=== PATIENT | female | born 1995 | race Caucasian/White ===

== ENCOUNTER 2016-12-17 17:28 | Emergency (ER) | payer OTHER ==
[~2016-12-17] VITALS: Wt 64.0 kg
[~2016-12-17 17:28] MED LIST: ASCO500C7 PO; CALC600T11 PO; CYAN500T46 PO; HYDR-906 PO; IBUP-1542 PO; PRENAT PO
[2016-12-17 17:31] VITALS: Wt 64.0 kg
[2016-12-17 18:53] LABS: URINE BLOOD (Dip) POC 2+ (NEGATIVE)
--- NOTE | 2016-12-17 20:02 | RADRPT ---
PROCEDURE: US Pelvis. CLINICAL INDICATION: Pelvic pain, right-sided TECHNIQUE: Multiple sonographic images of the pelvis were obtained utilizing a transabdominal and endovaginal technique. The images were reviewed on a PACS workstation. COMPARISON: Obstetrical ultrasound 02/14/2016 FINDINGS: Uterus: Normal in size, contour and echogenicity with no evidence for myometrial masses. Size is est imated at 6.8 x 4.5 x 3.4 cm. Cervix: No abnormalities of significance are seen. Endometrium: Normal in thickness; 7.3 mm. Linear echogenic focus consistent with an intrauterine de vice is in good position Right ovary / adnexa: Normal in size estimated at 2.6 x 2.4 x 1.7 cm. No evidence for masses, norm al blood flow on Doppler interrogation. Left ovary/adnexa: Normal in size estimated at 1.8 x 1 x 0.9 cm. No evidence for solid masses, norm al blood flow on Doppler interrogation. Punctate echogenic shadowing foci within the ovary are consi stent with benign calcifications. Cul-de-sac: No evidence of free fluid. RPTAT:HJJR IMPRESSION: Intrauterine device in good position, otherwise unremarkable pelvic ultrasound. Physician Meng Date Time Electronically viewed and signed by Physician Meng on 12/17/2016 20:02 /
[2016-12-17] MEDS ORDERED: IBUP-1542 PO (20:25)
[2016-12-17 20:46] VITALS: BP 122/72; PULSE 75; RESP 16
--- NOTE | 2016-12-17 22:18 | ERD ---
ER Documentation Chief Complaint Date/Time DATE: 12/17/16 TIME: 22:09 Chief Complaint VAG BLEEDING, ONSET 2 DAYS HPI 21-year-old female complaining of right-sided pelvic pain since this morning. Pain is intermittent. There is no radiation of the pain. Her LMP was about 4 days ago, she is still currently spotting. Patient has Ursula IUD in place, her periods has been irregular. Patient is also breast-feeding a [id number] daughter. She took ibuprofen for pain about 6 hours ago. Denies fever or chills. Denies nausea vomiting or diarrhea. Denies dysuria. ROS All systems reviewed and are negative except as per history of present illness. Medications Home Meds Active Scripts Ibuprofen* (Motrin*) 600 Mg Tab, 600 MG PO Q6H Y for PAIN AND OR ELEVATED TEMP, #30 TAB Prov:ROGER VIRAMONTES. EMS EDUCATOR 12/17/16 Hydrocodone/Acetaminophen (David 5-325 Tablet) 1 Each Tablet, 1 TAB PO Q6H Y for PAIN, #12 TAB Prov:SILVANA ADAMSON DO 03/24/16 Reported Medications Ibuprofen* (Ibuprofen*) 600 Mg Tablet, 600 MG PO Q6H, TAB 03/24/16 Cyanocobalamin* (Vitamin B12*) Unknown Strength Tab, MCG PO DAILY, TAB 03/24/16 Ascorbic Acid* (Vitamin C*) 500 Mg Capsule.sa, 500 MG PO DAILY, CAP 03/24/16 Calcium Carbonate* (Calcium Carbonate*) 600 MG Ca Tab, 600 MG PO DAILY, TAB 01/26/16 Multivit/Min/Fol Ac/Iron/Pren* ( S*) Unknown Strength Tab, PO DAILY, TAB 09/30/15 Allergies Allergies: Coded Allergies: No Known Allergy (Unverified , 03/24/16) PMhx/Soc Medical and Surgical Hx: pt denies Medical Hx, pt denies Surgical Hx History of Surgery: No Anesthesia Reaction: No Hx Neurological Disorder: No Hx Respiratory Disorders: No Hx Cardiac Disorders: No Hx Psychiatric Problems: No Hx Miscellaneous Medical Probl: No (1 month post full term , breast feeding) Hx Alcohol Use: No Hx Substance Use: No Hx Tobacco Use: No Smoking Status: Never smoker Physical Exam Vitals Vital Signs Date Time Temp Pulse Resp B/P Pulse Ox O2 Delivery O2 Flow Rate FiO2 12/17/16 20:46 75 16 122/72 98 Room Air 12/17/16 17:31 98.7 99 16 157/75 99 Physical Exam General: Well-developed, well-nourished, conscious and coherent, in no distress Skin: Warm and dry without rash, good texture and turgor Head: Normocephalic without evidence of trauma Eyes: Sclera and conjunctivae normal; pupils equal, round, and reactive to light; extraocular movements are intact Neck: Supple without meningismus or adenopathy. Carotids are equal. Trachea midline. No bruits or JVD Chest: Normal AP diameter. Good expansion without retractions. Nontender. Lungs are clear to auscultate bilaterally with good tidal volume Heart: Regular rate and rhythm. No murmur, rub, or gallops heard Abdomen: Soft and nontender without masses, guarding, or rebound. Bowel sounds are active. No hepatosplenomegaly. No McBurney point tenderness. Back: Without spinal or CVA tenderness Pelvis: Nontender to palpation and stable to compression Extremities: Full range of motion. Good strength bilaterally. No clubbing, cyanosis, or edema. Peripheral pulses are intact. Sensation intact Neuro: Alert and oriented 4, GCS 15. Cranial nerves grossly intact. Motor and sensory exams nonfocal. Moves all extremities. Speech clear. Gait normal Results 24 hrs Laboratory Tests Test 12/17/16 18:56 Bedside Urine pH (LAB) 7.0 Bedside Urine Protein (LAB) 1+ Bedside Urine Glucose (UA) Negative Bedside Urine Ketones (LAB) Trace Bedside Urine Blood 2+ Bedside Urine Nitrite (LAB) Negative Bedside Urine Leukocyte Esterase (L Trace PROCEDURE: US Pelvis. CLINICAL INDICATION: Pelvic pain, right-sided TECHNIQUE: Multiple sonographic images of the pelvis were obtained utilizing a transabdominal and endovaginal technique. The images were reviewed on a PACS workstation. COMPARISON: Obstetrical ultrasound 02/14/2016 FINDINGS: Uterus: Normal in size, contour and echogenicity with no evidence for myometrial masses. Size is estimated at 6.8 x 4.5 x 3.4 cm. Cervix: No abnormalities of significance are seen. Endometrium: Normal in thickness; 7.3 mm. Linear echogenic focus consistent with an intrauterine device is in good position Right ovary / adnexa: Normal in size estimated at 2.6 x 2.4 x 1.7 cm. No evidence for masses, normal blood flow on Doppler interrogation. Left ovary/adnexa: Normal in size estimated at 1.8 x 1 x 0.9 cm. No evidence for solid masses, normal blood flow on Doppler interrogation. Punctate echogenic shadowing foci within the ovary are consistent with benign calcifications. Cul-de-sac: No evidence of free fluid. RPTAT:HJJR IMPRESSION: Intrauterine device in good position, otherwise unremarkable pelvic ultrasound. Nico Cruz Physician Date Time Electronically viewed and signed by Nico Cruz Physician on 12/17/2016 20:02 JR/ CC: ROGER VIRAMONTES. EMS EDUCATOR Procedures/MDM Well-appearing 21-year-old female is complaining of pelvic pain 1 day. Her pelvic ultrasound was unremarkable, IUD in good position, no adnexal masses, ovarian cysts or ovarian torsion. Urine dip showed trace leukocyte, 2+ blood, trace ketones, 1+ protein. Patient denies dysuria, I do not feel that she needs antibiotic UTI treatment. It is uncertain the cause of her pelvic pain at this time, likely due to menstrual cramping. Patient appears well, stable for discharge and outpatient management. Medical decision making shared with patient and family. Education provided to patient and family. Patient and family expressed understanding of the plan. Medications on discharge: Ibuprofen. Follow-up: Primary care provider in 2-3 days or return to ED if worse. Departure Diagnosis: Primary Impression: Pelvic pain Condition: Stable Patient Instructions: Pelvic Pain, Unknown Cause Referrals: COMMUNITY CLINICS YOU HAVE RECEIVED A MEDICAL SCREENING EXAM AND THE RESULTS INDICATE THAT YOU DO NOT HAVE A CONDITION THAT REQUIRES URGENT TREATMENT IN THE EMERGENCY DEPARTMENT. FURTHER EVALUATION AND TREATMENT OF YOUR CONDITION CAN WAIT UNTIL YOU ARE SEEN IN YOUR DOCTORS OFFICE WITHIN THE NEXT 1-2 DAYS. IT IS YOUR RESPONSIBILITY TO MAKE AN APPOINTMENT FOR FOLOW-UP CARE. IF YOU HAVE A PRIMARY DOCTOR --you should call your primary doctor and schedule an appointment IF YOU DO NOT HAVE A PRIMARY DOCTOR YOU CAN CALL OUR PHYSICIAN REFERRAL HOTLINE AT IF YOU CAN NOT AFFORD TO SEE A PHYSICIAN YOU CAN CHOSE FROM THE FOLLOWING [facility]ESS [facility] CLINICS [facility] [address] [facility]. [facility] [address] [facility] [address] [facility] [address] [facility]. [facility] [address] [facility]. [facility] [address] Additional Instructions: Call your primary care doctor TOMORROW for an appointment during the next 2-3 days.See the doctor sooner or return here if your condition worsens before your appointment time. ROGER VIRAMONTES NP December 17, 2016 22:18
== END 2016-12-17 20:48 | disposition home or self-care (01) ==
LOC: FTE 17:28
DX: R10.2 Pelvic and perineal pain (principal)
CPT/HCPCS: 76830; 76856; 81003

== ENCOUNTER 2017-06-02 17:57 | Emergency (ER) | payer OTHER ==
[~2017-06-02] VITALS: Wt 65.9 kg
[~2017-06-02 17:57] MED LIST changes: -CALC600T11 PO; +CALC600T24 PO
[2017-06-02] MEDS ORDERED: ONDANSETRON 4 MG INJ IV STA (20:07)
[2017-06-02] MEDS ORDERED: KETOROLAC 30 MG INJ IV STA (20:07)
[2017-06-02] MEDS ORDERED: SOD CHLORIDE 0.9% 1,000 ML IV STA (20:07)
--- NOTE | 2017-06-02 20:16 | ERD ---
ER Documentation Chief Complaint Chief Complaint Right upper quadrant abdominal pain HPI Patient is a 22-year-old female who presents to the emergency department with complaint of right upper quadrant abdominal pain radiating to the back. The patient reports that her symptoms initially began last night, with onset of by sharp, constant pain to the right upper quadrant of the abdomen that radiates to the back. It began shortly after eating a meal with fried mozzarella sticks. She reports associated nausea with multiple episodes of nonbilious, nonbloody emesis. She also notes a few episodes of diarrhea. Denies any black or bloody stools. Denies dysuria, hematuria, flank pain. Denies vaginal bleeding or new vaginal discharge. Denies fevers, sweats, chills, headache, dizziness, weakness. The patient reports a known history of gallstones, and states that she previously had similar symptoms during a prior "gallstone attack." She notes that authorization has been placed for her to follow up with a general surgeon, but she has not yet seen one. ROS All systems reviewed and are negative except as per history of present illness. Medications Home Meds Active Scripts Ondansetron (Zofran Odt) 4 Mg Tab.rapdis, 4 MG PO Q8, #5 Prov:ADELIA KAMINSKI PA-C 06/02/17 Ibuprofen* (Motrin*) 600 Mg Tab, 600 MG PO Q6, #30 TAB Prov:ADELIA KAMINSKI PA-C 06/02/17 Hydrocodone/Acetaminophen ([place] 5-325 Tablet) 1 Each Tablet, 1 EACH PO Q6, #6 TAB Prov:ADELIA KAMINSKI PA-C 06/02/17 Ibuprofen* (Motrin*) 600 Mg Tab, 600 MG PO Q6H Y for PAIN AND OR ELEVATED TEMP, #30 TAB Prov:ROGER VIRAMONTES RELATIONS SPECIALIST 12/17/16 Hydrocodone/Acetaminophen ([place] 5-325 Tablet) 1 Each Tablet, 1 TAB PO Q6H Y for PAIN, #12 TAB Prov:SILVANA ADAMSON DO 03/24/16 Reported Medications Ibuprofen* (Ibuprofen*) 600 Mg Tablet, 600 MG PO Q6H, TAB 03/24/16 Cyanocobalamin* (Vitamin B12*) Unknown Strength Tab, MCG PO DAILY, TAB 03/24/16 Ascorbic Acid* (Vitamin C*) 500 Mg Capsule.sa, 500 MG PO DAILY, CAP 03/24/16 Calcium Carbonate* (Calcium Carbonate*) 600 MG Ca Tab, 600 MG PO DAILY, TAB 01/26/16 Multivit/Min/Fol Ac/Iron/Pren* ( S*) Unknown Strength Tab, PO DAILY, TAB 09/30/15 Allergies Allergies: Coded Allergies: No Known Allergy (Unverified , 06/02/17) PMhx/Soc Medical and Surgical Hx: pt denies Surgical Hx History of Surgery: No Anesthesia Reaction: No Hx Neurological Disorder: No Hx Respiratory Disorders: No Hx Cardiac Disorders: No Hx Psychiatric Problems: No Hx Miscellaneous Medical Probl: Yes (GALLSTONES) Hx Alcohol Use: No Hx Substance Use: No Hx Tobacco Use: No Smoking Status: Never smoker Physical Exam Vitals Vital Signs Date Time Temp Pulse Resp B/P Pulse Ox O2 Delivery O2 Flow Rate FiO2 06/02/17 22:08 98.3 89 18 136/71 100 Room Air 06/02/17 17:59 97.4 84 20 126/73 100 Physical Exam GENERAL: Well-developed, well-nourished, female, in no acute distress HEENT: Head is normocephalic, atraumatic. No scleral pallor or icterus. Pupils equal, round and reactive to light. Extraocular movements intact. Conjunctiva pink. Moist mucous membranes. NECK: Supple. RESPIRATORY: Lungs are clear to auscultation bilaterally. Equal breath sounds. Normal expiratory effort. CARDIOVASCULAR: Regular rate and rhythm. S1 and S2 normal. Distal pulses are palpable, 2+ bilaterally. Capillary refill is less than 2 seconds. GASTROINTESTINAL: Abdomen is soft and non-distended. Tenderness to palpation over the right upper quadrant of the abdomen. No guarding, no rebound tenderness. Normal bowel sounds. No tenderness at McBurney's point. Negative Jara sign. FLANK: No CVA tenderness. BACK: No midline tenderness. EXTREMITIES: No clubbing, cyanosis, or edema. Normal skin perfusion. Moving all extremities. Muscle tone is normal. No focal swelling or erythema. NEUROLOGIC: The patient is alert, awake, and oriented x 3. No focal neurologic deficits. INTEGUMENT: Skin is intact. Warm and dry. No rashes, no petechiae present. PSYCHIATRIC: Cooperative. Appropriate. Result Diagram: 11/8/17 2030 11/8/17 2030 Results 24 hrs Laboratory Tests Test 06/02/17 20:30 White Blood Count 11.710^3/ul Red Blood Count 4.4310^6/ul Hemoglobin 12.6g/dl Hematocrit 39.0% Mean Corpuscular Volume 88.0fl Mean Corpuscular Hemoglobin 28.4pg Mean Corpuscular Hemoglobin Concent 32.3g/dl Red Cell Distribution Width 13.0% Platelet Count 71358^3/UL Mean Platelet Volume 9.7fl Neutrophils % 61.7% Lymphocytes % 29.4% Monocytes % 7.3% Eosinophils % 0.9% Basophils % 0.4% Nucleated Red Blood Cells % 0.0/100WBC Neutrophils # 7.210^3/ul Lymphocytes # 3.410^3/ul Monocytes # 0.910^3/ul Eosinophils # 0.110^3/ul Basophils # 0.110^3/ul Nucleated Red Blood Cells # 0.010^3/ul Prothrombin Time 12.7Sec Prothrombin Time Ratio 1.0 INR International Normalized Ratio 0.95 Activated Partial Thromboplast Time 34.2Sec Urine Color YELLOW Urine Clarity SLIGHTLY CLOUDY Urine pH 7.0 Urine Specific [place] 1.027 Urine Ketones NEGATIVEmg/dL Urine Nitrite NEGATIVEmg/dL Urine Bilirubin NEGATIVEmg/dL Urine Urobilinogen NEGATIVEmg/dL Urine Leukocyte Esterase NEGATIVELeu/ul Urine Microscopic RBC 0/HPF Urine Microscopic WBC 5/HPF Urine Squamous Epithelial Cells FEW/HPF Urine Mucus FEW/HPF Urine Hemoglobin NEGATIVEmg/dL Urine Glucose NEGATIVEmg/dL Urine Total Protein NEGATIVEmg/dl Sodium Level 143mmol/L Potassium Level 3.9mmol/L Chloride Level 104mmol/L Carbon Dioxide Level 26mmol/L Anion Gap 17 Blood Urea Nitrogen 16mg/dl Creatinine 0.70mg/dl Glucose Level 88mg/dl Calcium Level 9.1mg/dl Total Bilirubin 0.1mg/dl Direct Bilirubin 0.00mg/dl Indirect Bilirubin 0.1mg/dl Aspartate Amino Transf (AST/SGOT) 17IU/L Alanine Aminotransferase (ALT/SGPT) 23IU/L Alkaline Phosphatase 89IU/L Total Protein 6.4g/dl Albumin 4.7g/dl Globulin 1.70g/dl Albumin/Globulin Ratio 2.76 Lipase 90U/L Serum HCG, Qualitative NEGATIVE Current Medications Medications (Trade) Dose Ordered Sig/Jere Route PRN Reason Start Time Stop Time Status Last Admin Dose Admin Sodium Chloride (NS) 1,000 ml @ 1,000 mls/hr Q1H STAT IV 06/02/17 20:07 06/02/17 21:06 DC 06/02/17 20:41 Ondansetron HCl (Zofran Inj) 4 mg ONCE STAT IV 06/02/17 20:07 06/02/17 20:10 DC 06/02/17 20:41 Ketorolac Tromethamine (Toradol) 30 mg ONCE STAT IV 06/02/17 20:07 06/02/17 20:10 DC 06/02/17 20:41 Procedures/MDM DIAGNOSTIC TESTS AND INTERPRETATION: PROCEDURE: US Abdomen Right Upper Quadrant. CLINICAL INDICATION: Abdominal pain TECHNIQUE: Multiple real-time longitudinal and transverse images were acquired of the patient's right upper quadrant abdomen utilizing a curved array transducer. COMPARISON: 03/24/2016 FINDINGS: Liver: The liver is borderline enlarged with no focal lesion identified. Antegrade flow is seen in the main portal vein. Gallbladder: At least two 6 mm gallstone is seen within the gallbladder fundus. The gallbladder wall is not thickened at 2.2 mm in thickness. Bile ducts: The biliary tree is not dilated. The common bile duct measures 2.3 mm in cross diameter. Pancreas: Appears unremarkable with no mass or inflammation evident. Right adrenal : No mass is identified. Right kidney: Normal in echotexture andl in size. The right kidney measures 10.9 cm in length. No mass, pathological calcification, or hydronephrosis is evident. Peritoneum: There is no free intraperitoneal fluid IMPRESSION: 1. When compared to the previous sonogram of 03/24/2016, there is persistent cholelithiasis, but the gallbladder wall is no longer thickened. No bile duct dilatation is evident. The technologist reports a negative sonographic Jara's sign. 2. The visualized pancreas appears unremarkable. 3. The liver is upper normal in size with no focal lesion identified. 4. Normal appearing right kidney without hydronephrosis. 5. No free fluid is identified. Physician Josias Date Time Electronically viewed and signed by Physician Josias on 06/02/2017 20:44 EMERGENCY DEPARTMENT COURSE: The patient was stable throughout the ED course. IV access established by nursing staff. Laboratory testing and ultrasound imaging performed. Normal saline, Toradol and Zofran administered to the patient. After rest, the patient reports no new complaints, and resolution of pain and nausea. MEDICAL DECISION MAKING: This is a 22-year-old female presenting to the Emergency Department with complaint of right upper quadrant abdominal pain. Her pain began shortly after eating a meal of fried mozzarella sticks. Physical examination, the patient's abdomen was soft, but with tenderness of the right upper quadrant of the abdomen. She had no guarding, no rebound tenderness, no gross peritonitis, negative Jara sign. Differential diagnosis includes, but is not limited to, gastroenteritis, gastritis, cholecystitis, cholangitis, choledocholithiasis, pancreatitis, perforated viscus, mesenteric ischemia, GERD , PUD, urinary tract infection, acute coronary syndrome, peptic ulcer disease, pyelonephritis, pneumonia, hepatitis, infectious diarrhea, IBD, aortic dissection, torsion, bowel obstruction, appendicitis, diverticulitis. No significant acute abnormalities were noted on laboratory testing performed. Ultrasound imaging revealed cholelithiasis, but with no gallbladder wall thickening. Otherwise, no evidence of acute cholecystitis, cholangitis, choledocholithiasis or gallstone pancreatitis. After rest and administration of medications, the patient reports no new complaints and resolved pain and symptoms. Upon review and interpretation of the patient's presentation and overall ER course, I believe the patient's symptoms are most consistent with right upper quadrant abdominal pain, likely secondary to cholelithiasis without cholecystitis, biliary colic. Doubt acute coronary syndrome - symptoms and examination inconsistent. Doubt pancreatitis - clinical presentation inconsistent, lipase normal. Doubt perforated ulcer, patient has a non-surgical abdomen. Doubt small bowel obstruction, patient is passing flatus, abdomen is non-distended. Doubt appendicitis, patient has no McBurney's point tenderness, no guarding, non-surgical abdomen, no tenderness over the RLQ. Doubt diverticulitis, exam inconsistent. Doubt ischemic bowel, no pain out of proportion to examination. Doubt torsion, symptoms and examination inconsistent. At this time, the patient is in stable condition and therefore can be discharged home with prescriptions for Ibuprofen, [place] and Zofran and strict return precautions for signs of deteriorating or worsening condition. She is advised to follow up with her primary care provider in 1-2 days for re- evaluation and further management, or return to the ER sooner if symptoms worsen. Additionally, discussed follow-up with general surgeon to discuss elective cholecystectomy. I shared my medical decision making, plan, as well as the results with the patient at length and in great detail, and she verbally understands and agrees with the plan for further observation and care as an outpatient. At the time of discharge, all questions were answered. Departure Diagnosis: Primary Impression: Cholelithiasis without cholecystitis Additional Impressions: Biliary colic Right upper quadrant abdominal pain Condition: Stable Patient Instructions: Biliary Colic With Gallstone (Confirmed), Gallstones, Treating Gallstones, What Are Gallstones? Additional Instructions: Follow-up with your primary medical provider in 1-2 days for reevaluation and further management. Please obtain a referral to a general surgeon to discuss elective cholecystectomy. Return to the emergency department for any new or worsening symptoms. ADELIA KAMINSKI PA-C Jun 02, 2017 20:15
--- NOTE | 2017-06-02 20:44 | RADRPT ---
PROCEDURE: US Abdomen Right Upper Quadrant. CLINICAL INDICATION: Abdominal pain TECHNIQUE: Multiple real-time longitudinal and transverse images were acquired of the patient's [facility] upper quadrant abdomen utilizing a curved array transducer. COMPARISON: 03/24/2016 FINDINGS: Liver: The liver is borderline enlarged with no focal lesion identified. Antegrade flow is seen in t he main portal vein. Gallbladder: At least two 6 mm gallstone is seen within the gallbladder fundus. The gallbladder wall is not thickened at 2.2 mm in thickness. Bile ducts: The biliary tree is not dilated. The common bile duct measures 2.3 mm in cross diameter. Pancreas: Appears unremarkable with no mass or inflammation evident. Right adrenal : No mass is identified. Right kidney: Normal in echotexture andl in size. The right kidney measures 10.9 cm in length. No ma ss, pathological calcification, or hydronephrosis is evident. Peritoneum: There is no free intraperitoneal fluid IMPRESSION: 1. When compared to the previous sonogram of 03/24/2016, there is persistent cholelithiasis, but th e gallbladder wall is no longer thickened. No bile duct dilatation is evident. The technologist repo rts a negative sonographic Jara's sign. 2. The visualized pancreas appears unremarkable. 3. The liver is upper normal in size with no focal lesion identified. 4. Normal appearing right kidney without hydronephrosis. 5. No free fluid is identified. Physician Josias Date Time Electronically viewed and signed by Physician Josias on 06/02/2017 20:44 RH/
[2017-06-02] MEDS ORDERED: HYDR-906 PO (21:54)
[2017-06-02] MEDS ORDERED: IBUP-1542 PO (21:54)
[2017-06-02] MEDS ORDERED: ONDA4TAB11 PO (21:55)
[2017-06-02 22:08] VITALS: BP 136/71; PULSE 89; RESP 18; TEMP 98.3
== END 2017-06-02 22:10 | disposition home or self-care (01) ==
LOC: FTE 17:57
DX: K80.70 Calculus of gallbladder and bile duct without cholecystitis without obstruction (principal)
CPT/HCPCS: 36415; 76705; 80053; 81001; 83690; 84703; 85025; 85610; 85730; 96374; 96375; J1885; J2405; J7030; Z7502; 81003

== ENCOUNTER 2018-08-09 17:21 | Emergency (ER) | payer OTHER ==
[~2018-08-09] VITALS: Ht 167.6 cm; Wt 70.9 kg
[~2018-08-09 17:21] MED LIST changes: +HYDR-4011 PO; -HYDR-906 PO; +ONDA4TAB11 PO
[2018-08-09 17:28] VITALS: BP 122/74; PULSE 126; RESP 18; Ht 167.6 cm; Wt 70.9 kg
[2018-08-09] MEDS ORDERED: LIDOCAINE 2%/EPI MPF (SDV) 20 ML VIAL INJ STA (17:47)
[2018-08-09] MEDS ORDERED: IBUPROFEN 800 MG TAB PO ONE (18:00)
[2018-08-09] MEDS ORDERED: DIPHTH/TET/ACEL PERTUSS (ADULT) 0.5 ML VIAL IM* ONE (18:00)
--- NOTE | 2018-08-09 19:00 | ERD ---
ER Documentation Chief Complaint Chief Complaint RIGHT HAND/FOREARM LAC FROM WINDOW THAT BROKEN WHEN CLOSING HPI 23-year-old female is here with hand laceration to the right hand which is her dominant hand. She was opening a window in the glass shattered and cut her. She sustained 2 lacerations to the dorsal surface of her right hand. She is unsure of her last tetanus vaccination. Unsure if there are any retained pieces of glass. No numbness or tingling or loss of range of motion. ROS All systems reviewed and are negative except as per history of present illness. Medications Home Meds Active Scripts Ondansetron (Zofran Odt) 4 Mg Tab.rapdis, 4 MG PO Q8, #5 Prov:ADELIA KAMINSKI PA-C 06/02/17 Ibuprofen* (Motrin*) 600 Mg Tab, 600 MG PO Q6, #30 TAB Prov:ADELIA KAMINSKI PA-C 06/02/17 Hydrocodone/Acetaminophen ([place] 5-325 Tablet) 1 Each Tablet, 1 EACH PO Q6, #6 TAB Prov:ADELIA KAMINSKI PA-C 06/02/17 Ibuprofen* (Motrin*) 600 Mg Tab, 600 MG PO Q6H PRN for PAIN AND OR ELEVATED TEMP, #30 TAB Prov:ROGER VIRAMONTES NP 12/17/16 Hydrocodone/Acetaminophen ([place] 5-325 Tablet) 1 Each Tablet, 1 TAB PO Q6H PRN for PAIN, #12 TAB Prov:SILVANA ADAMSON DO 03/24/16 Reported Medications Ibuprofen* (Ibuprofen*) 600 Mg Tablet, 600 MG PO Q6H, TAB 03/24/16 Cyanocobalamin* (Vitamin B12*) Unknown Strength Tab, MCG PO DAILY, TAB 03/24/16 Ascorbic Acid* (Vitamin C*) 500 Mg Capsule.sa, 500 MG PO DAILY, CAP 03/24/16 Calcium Carbonate* (Calcium Carbonate*) 600 MG Ca Tab, 600 MG PO DAILY, TAB 01/26/16 Multivit/Min/Fol Ac/Iron/Pren* ( S*) Unknown Strength Tab, PO DAILY, TAB 09/30/15 Allergies Allergies: Coded Allergies: No Known Allergy (Unverified , 06/02/17) PMhx/Soc History of Surgery: No Anesthesia Reaction: No Hx Neurological Disorder: No Hx Respiratory Disorders: No Hx Cardiac Disorders: No Hx Psychiatric Problems: No Hx Miscellaneous Medical Probl: Yes (GALLSTONES) Hx Alcohol Use: No Hx Substance Use: No Hx Tobacco Use: No FmHx Family History: No diabetes Physical Exam Vitals Vital Signs Date Temp Pulse Resp B/P (MAP) Pulse Ox O2 O2 Flow FiO2 Time Delivery Rate 08/09/18 100.9 126 18 122/74 98 17:28 (90) Physical Exam Const: No acute distress Head: Atraumatic Eyes: Normal Conjunctiva ENT: Normal External Ears, Nose and Mouth. Neck: Full range of motion. No meningismus. Resp: Clear to auscultation bilaterally Cardio: Regular rate and rhythm, no murmurs Hand -right Skin: 2 lacerations approximately 5 cm each 1 in the mid dorsal surface of the hand and one along the ulnar aspect of the dorsal surface, no evidence of retained foreign body Compartments: Soft Sensation: Intact shoulder/pinky/middle finger/thumb web space Bones: Nontender Snuffbox: Nontender Joints: No effusion Wrist: Flex/Ext: Normal Uln/Radial deviation: Normal Pron/Supination Normal Finger: Flex/Ext: Normal Add/abd: Normal Thumb: Flex/Ext: Normal Opposition: Normal Thumbs up: Normal Results 24 hrs Current Medications Medications Dose Sig/Jere Start Time Status Last (Trade) Ordered Route PRN Stop Time Admin Dose Reason Admin Diphtheria/ 0.5 ml ONCE ONCE 08/09/18 DC 08/09/18 Tetanus/Acell IM* 18:00 17:52 Pertussis 08/09/18 18:01 (Adacel) Ibuprofen 800 mg ONCE ONCE 08/09/18 DC 08/09/18 (Motrin) PO 18:00 17:52 08/09/18 18:01 Lidocaine/ 20 ml ONCE STAT 08/09/18 DC Epinephrine INJ 17:47 (Xylocaine 08/09/18 17:48 2%/ Epi Mpf(Sdv)) Procedures/MDM X-ray is negative for foreign body. She is neurovascularly intact. The skin edges of the laceration were infiltrated with 1% lidocaine . The laceration was irrigated with copious amounts of normal saline. The wound was prepped with Betadine. On examinationexamination under direct light, there was no foreign body seen. The laceration was repaired with simple interrupted sutures. 14 sutures total After repair, there was no continuing bleeding on repair and there did not appear to be any complication related to repair. The patient tolerated the procedure well and the wound was appropriately dressed and bandaged. I recommended the patient return in 2 days for a wound check and 7-10 days for removal of sutures. Patient counseled regarding my diagnostic impression and care plan. Prior to discharge all questions answered. Pt agrees with treatment plan and understands strict return precautions. Pt is instructed to follow up with primary care provider within 24-48 hours. Precautionary instructions provided including instructions to return to the ER if not improving or for any worsening or changing symptoms or concerns. Departure Diagnosis: Primary Impression: Laceration Condition: Stable Patient Instructions: Laceration, Hand Additional Instructions: Follow up in 2 days in your clinic for wound check. Follow up with your physician to remove the stitches:For Face wounds 5-7 days.For Elsewhere on the body 7-10 days. JACKIE WHALEN PA-C Aug 09, 2018 19:00
== END 2018-08-09 19:14 | disposition home or self-care (01) ==
LOC: FTE 17:21
DX: S61.411A Laceration without foreign body of right hand, initial encounter (principal); W25.XXXA Contact with sharp glass, initial encounter; Y92.9 Unspecified place or not applicable; Z23 Encounter for immunization
CPT/HCPCS: 12004; 73130; 90471; 90715; Z7502; Z7610

== ENCOUNTER 2018-09-22 05:50 | Day surgery (SDC) | payer OTHER ==
[~2018-09-22] VITALS: Ht 162.6 cm; Wt 72.6 kg
[2018-09-22] VITALS (14 sets, daily range): BP systolic 108–134; BP diastolic 59–79; PULSE 74–112; RESP 12–31; Ht 162.6 cm; Wt 72.6 kg
[2018-09-22] MEDS ORDERED: OMEP20CA16 PO (06:46)
--- NOTE | 2018-09-22 06:54 | PREAC ---
Date/Time of Note Date/Time of Note DATE: 09/22/18 TIME: 06:52 Anesthesia Eval and Record Evaluation Time Pre-Procedure Interview DATE: 09/22/18 TIME: 06:52 Age 23 Sex female NPO: 8 hrs Preoperative diagnosis right long finger extensor tendon tear Planned procedure repair right long ring finger extensor tendon Past Medical History Past Medical History: Includes GI: GERD (well controlled with omeprazole) Surgery & Anesthesia Issues No known issue Meds Anticoagulation: No Beta Lev within 24 hr: No Reason Beta Lev not given: Pt. not on B-Lev Reported Medications Omeprazole* (Omeprazole*) 20 Mg Capsule.dr, 20 MG PO DAILY, #30 CAP 09/22/18 Discontinued Reported Medications Ibuprofen* (Ibuprofen*) 600 Mg Tablet, 600 MG PO Q6H, TAB 03/24/16 Cyanocobalamin* (Vitamin B12*) Unknown Strength Tab, MCG PO DAILY, TAB 03/24/16 Ascorbic Acid* (Vitamin C*) 500 Mg Capsule.sa, 500 MG PO DAILY, CAP 03/24/16 Calcium Carbonate* (Calcium Carbonate*) 600 MG Ca Tab, 600 MG PO DAILY, TAB 01/26/16 Multivit/Min/Fol Ac/Iron/Pren* ( S*) Unknown Strength Tab, PO DAILY, TAB 09/30/15 Discontinued Scripts Ondansetron (Zofran Odt) 4 Mg Tab.rapdis, 4 MG PO Q8, #5 Prov:ADELIA KAMINSKI PA-C 06/02/17 Ibuprofen* (Motrin*) 600 Mg Tab, 600 MG PO Q6, #30 TAB Prov:ADELIA KAMINSKI PA-C 06/02/17 Hydrocodone/Acetaminophen ([place] 5-325 Tablet) 1 Each Tablet, 1 EACH PO Q6, #6 TAB Prov:ADELIA KAMINSKI PA-C 06/02/17 Ibuprofen* (Motrin*) 600 Mg Tab, 600 MG PO Q6H PRN for PAIN AND OR ELEVATED TEMP, #30 TAB Prov:ROGER VIRAMONTES NP 12/17/16 Hydrocodone/Acetaminophen ([place] 5-325 Tablet) 1 Each Tablet, 1 TAB PO Q6H PRN for PAIN, #12 TAB Prov:SILVANA ADAMSON DO 03/24/16 Current Medications Cefazolin Sodium/ Dextrose 50 ml @ 100 mls/hr PRE-OP ONCE IVPB ; Start 09/22/18 at 07:00; Stop 09/22/18 at 07:29 Meds reviewed: Yes Allergies Coded Allergies: No Known Allergy (Unverified , 09/22/18) Allergies Reviewed: Yes Labs/Studies Labs Reviewed: Reviewed by anesthesiologist test: Negative Pre-procedure Exam Last vitals Vital Signs Date Temp Pulse Resp B/P (MAP) Pulse Ox O2 O2 Flow FiO2 Time Delivery Rate 09/22/18 98.7 82 20 132/76 99 Room Air 06:45 (94) Airway: Adequate mouth opening, Adequate thyromental dist Mallampati: Mallampati II Teeth: Normal Lung: Normal Heart: Normal ASA Physical Status ASA physical status: 1 Emergency: None Planned Anesthetic General/MAC: LMA Planned Pain Management Parenteral pain med, Local by surgeon Pre-operative Attestations Prior to commencing anesthesia and surgery, the patient was re-evaluated, there was verification of: *The patient's identity *The results of appropriate recent lab work and preoperative vital signs *The above evaluation not changing prior to induction *Anesthetic plan, risk benefits, alternative and complications discussed with patient/family; questions answered; patient/family understands, accepts and wishes to proceed. KIM BARKER Sep 22, 2018 06:54
[2018-09-22] MEDS ORDERED: LIDOCAINE 2% (SDV) 5 ML INJ ONE (06:56)
[2018-09-22] MEDS ORDERED: PROPOFOL 20 ML ONE (06:56)
[2018-09-22] MEDS ORDERED: FENTAnyl 50 MCG/ML VIAL ONE (06:56)
[2018-09-22] MEDS ORDERED: CEFAZOLIN 1 GM INJ ONE (06:56)
[2018-09-22] MEDS ORDERED: MIDAZOLAM 1 MG/ML 2 ML INJ ONE (06:56)
[2018-09-22] MEDS ORDERED: CEFAZOLIN 2 GM/50 ML (PMX) 50 ML IVPB ONE (07:00)
[2018-09-22] MEDS ORDERED: SEVOFLURANE 15 MIN ONE (07:00)
[2018-09-22] MEDS ORDERED: PROPOFOL 40 ML ONE (07:50)
[2018-09-22] MEDS ORDERED: ONDANSETRON 4 MG INJ ONE (07:59)
[2018-09-22] MEDS ORDERED: FAMOTIDINE 20 MG INJ ONE (07:59)
[2018-09-22] MEDS ORDERED: METOCLOPRAMIDE 10 MG INJ ONE (07:59)
[2018-09-22] MEDS ORDERED: DEXAMETHASONE 4 MG/ML 5 ML INJ ONE (07:59)
[2018-09-22] MEDS ORDERED: BUPIVACAINE 0.5% (SDV) 30 ML INJ ONE (08:02)
[2018-09-22] MEDS ORDERED: POLYMYXIN/BACITRACIN 1L IRRIG ONE (08:02)
[2018-09-22] MEDS ORDERED: ONDANSETRON 4 MG INJ IV PRN (08:30)
[2018-09-22] MEDS ORDERED: MIDAZOLAM 1 MG/ML 2 ML INJ IV PRN (08:30)
[2018-09-22] MEDS ORDERED: FENTAnyl 50 MCG/ML VIAL IV PRN ×3 (08:30)
[2018-09-22] MEDS ORDERED: MEPERIDINE 25 MG INJ IV PRN (08:30)
[2018-09-22] MEDS ORDERED: OXYCODONE/ACETAMINOPHEN (5/325) TAB PO PRN ×2 (08:30)
--- NOTE | 2018-09-22 09:00 | SIPON ---
Date/Time of Note Date/Time of Note DATE: 09/22/18 TIME: 08:58 Operative Report Preoperative Diagnosis Right long and ring finger extensor tendon laceration, zone 6 Right hand keloid scar Postoperative Diagnosis Right long finger extensor tendon laceration zone 6, right hand keloid scar Operation/Procedure Performed Right long finger extensor tendon repair Right long finger extensor tenosynovectomy Right hand a keloid scar revision Surgeon see signature line assistant at surgery None Anesthesia: general Estimated blood loss: minimal Transfusion Required none Specimen None Grafts/Implants none Complications none ABRAN COELLO MD Sep 22, 2018 09:00
--- NOTE | 2018-09-22 09:13 | OPR ---
Date/Time of Note Date/Time of Note DATE: 09/22/18 TIME: 09:00 Operative Report Procedure Date: Sep 22, 2018 Preoperative Diagnosis 1. Right long and ring finger extensor tendon laceration zone 6, 2. right hand keloid scar Postoperative Diagnosis 1. Right long finger extensor tendon laceration, zone 6, 2. Right hand keloid scar Operation/Procedure Performed 1. Right long finger extensor tendon repair zone 6, 2. Right hand keloid scar revision, 6cm Surgeon see signature line Ordnance Officer None Anesthesia Type: general Tourniquet Time: 30 minutes Estimated Blood Loss: minimal Transfusion none Specimen none Grafts/Implants none Tubes/Drains none Complications none Pt Condition Post Procedure: stable Disposition: PACU Indications Camila is a 23-year-old [id number] female who sustained a laceration to the dorsal aspect of her right hand approximately 6 weeks ago on a broken window. Treatment was delayed due to change in insurance. She was seen in my clinic this week and was found to have extensor lag of the right long and ring finger. She had intact sensation. She had 2 oblique keloid scars over the dorsal aspect of her hand; one was more in the ulnar aspect of the hand and the other one was more central. X-rays were negative for foreign body. Discussed surgery to include extensor tendon repair to long and ring finger and other tendons which were involved and keloid scar revision. She understood that due to the chronicity of this injury that primary repair may not be achievable. She understands risks of surgery which include but are not limited to those infection, pain, bleeding, neurovascular injury, stiffness, rerupture, decreased range of motion, decreased strength, tendon adhesions, and other anesthesia related risks. In regards to her keloid scar we also discussed revising the central one. We discussed potentially revising the ulnar one if the wounds were not in close proximity to one another, and if there is no concern for devitalizing the skin. She elected to proceed. Procedure Description Patient was identified preoperative holding area. Upper extremities marked. She is brought back to operating room. She is placed supine and general endotrach anesthesia was induced. 2 g of IV Ancef was administered. A nonsurgical supply of the right arm. The right arm was prepped and draped in usual sterile fashion. Timeout was performed indicating correct patient site and procedure. The arm was exsanguinated Esmarch and tourniquet was elevated to 250 minutes mercury. She had an approximately 6 cm oblique a keloid scar over the dorsal central aspect of the hand. The hypertrophic scar was ellipsed using a sharp knife down to the dermal layer. This keloid scar was then discarded. Hemostasis was achieved with bovie cautery. Blunt dissection was performed down to the extensor tendon. The dorsal veins were protected throughout the case. She had a thick mat of pseudo-tendon sheath that had formed to the long finger extensor tendon. The ring finger extensor tendon was intact. She was noted to have 2 slips of extensor tendon to the ring finger. Traction was pulled on the extensor tendons to the ring and index finger and this extended those 2 fingers respectively. The EIP and EDC to the index finger was also noted to be intact. The pseudo-tendon was then carefully debrided in a sequential manner. The und erside of the tendon was also debrided using blunt dissection. Once the 2 ends of the extensor tendon were then delineated the pseudo-tendon was divided in half. The ends of the tendon were debrided sharply using a knife taking care to preserve the intact tendon on both ends. There was good excursion of the proximal tendon. Laceration was located approximately in the central aspect of the hand. I decided that a primary repair would be possible versus doing a tendon transfer as there did not appear to be too much tension with distal traction of the proximal tendon. A modified Fraser suture was then passed using a 3-0 Ethibond suture. The knot was tied down with good opposition of the tendon ends without gapping. A horizontal mattress suture was then passed to reinforce it for a 4 core stranded repair with excellent reapproximation. The tourniquet was then released. Hemostasis was achieved with cautery. Subcutaneous tissue was closed with 3-0 Vicryl suture. Skin was closed with a running subcuticular 4-0 Monocryl suture. I decided to not revise the second keloid scar as it was quite close to this first incision and I was worried about possible risk of devitalizing the wounds or causing increased tension on the first incision. Local injection of 0.5% Marcaine plain was injected into the hand. Steri-Strips were applied and she was placed into a well-padded splint with the wrist in 30 degrees extension and MPs in extension. There is brisk capillary refill in all finger and sponge and instrument counts were correct at the case. She was extubated and taken to PACU stable condition. ABRAN COELLO MD Sep 22, 2018 09:13
--- NOTE | 2018-09-22 10:50 | PAC ---
Date/Time of Note Date/Time of Note DATE: 09/22/18 TIME: 10:50 Post-Anesthesia Notes Post-Anesthesia Note Last documented vital signs Vital Signs Date Temp Pulse Resp B/P (MAP) Pulse Ox O2 O2 Flow FiO2 Time Delivery Rate 09/22/18 97.9 91 18 113/79 95 10:06 (90) 09/22/18 Room Air 09:58 Activity: WNL Respiratory function: WNL Cardiovascular function: WNL Mental status: Baseline Pain reasonably controlled: Yes Hydration appropriate: Yes Nausea/Vomiting absent: Yes KIM BARKER Sep 22, 2018 10:50
== END 2018-09-22 10:52 | disposition home or self-care (01) ==
LOC: SDS 05:50
PROVIDERS: ATTEND Orthopaedic Surgery
DX: S66.324D Laceration of extensor muscle, fascia and tendon of right ring finger at wrist and hand level, subsequent encounter (principal); W25.XXXD Contact with sharp glass, subsequent encounter
CPT/HCPCS: 26418; 85025; J0690; J1100; J2250; J2405; J2765; J3010; Z7512; Z7610

== ENCOUNTER 2018-12-19 06:26 | Emergency (ER) | payer OTHER ==
[~2018-12-19] VITALS: Ht 160 cm; Wt 72.3 kg
[~2018-12-19 06:26] MED LIST changes: -ASCO500C7 PO; -CALC600T24 PO; -CYAN500T46 PO; -HYDR-4011 PO; -IBUP-1542 PO; +OMEP20CA16 PO; -ONDA4TAB11 PO; -PRENAT PO
[2018-12-19 06:35] VITALS: BP 134/83; PULSE 89; RESP 18; Ht 160 cm; Wt 72.3 kg
[2018-12-19] MEDS ORDERED: BELLADONNA/PHENOBARBITAL TAB PO STA (06:47)
[2018-12-19] MEDS ORDERED: LIDOCAINE/MYLANTA 40 ML BTL PO STA (06:47)
[2018-12-19] MEDS ORDERED: DIPHENHYDRAMINE 25 MG CAP PO ONE (07:00)
[2018-12-19] MEDS ORDERED: FAMO-96 PO (08:53)
[2018-12-19] MEDS ORDERED: CIPR500T4 PO (08:53)
[2018-12-19] MEDS ORDERED: HYDR-4011 PO (08:53)
--- NOTE | 2018-12-19 09:42 | ERD ---
ER Documentation Chief Complaint Chief Complaint epigastric pain x 1 daythinks its allergy to eggs HPI 23-year-old female presenting with epigastric pain. Patient's pain started yesterday after she ate some eggs. 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 Had a few episodes of vomiting. Took ibuprofen with no alleviation of symptoms. Denies any changes to urination or bowel movement. No fevers. Medical history denies. NKDA. Surgical history Marianne lithiasis and tendon hand repair. Social history denies ROS All systems reviewed and are negative except as per history of present illness. Medications Home Meds Active Scripts Hydrocodone/Acetaminophen ([place] 5-325 Tablet) 1 Each Tablet, 1 TAB PO Q6H PRN for PAIN, #7 TAB Prov:MELINDA JAMISON PA-C 12/19/18 Ciprofloxacin Hcl* (Ciprofloxacin Hcl*) 500 Mg Tablet, 500 MG PO BID for 7 Days, TAB Prov:MELINDA JAMISON PA-C 12/19/18 Famotidine* (Pepcid*) 20 Mg Tablet, 20 MG PO BID for 4 Days, #30 TAB Prov:MELINDA JAMISON PA-C 12/19/18 Reported Medications Omeprazole* (Omeprazole*) 20 Mg Capsule.dr, 20 MG PO DAILY, #30 CAP 09/22/18 Allergies Allergies: Coded Allergies: No Known Allergy (Unverified , 09/22/18) PMhx/Soc History of Surgery: Yes (lap kaylin) Anesthesia Reaction: No Hx Neurological Disorder: No Hx Respiratory Disorders: No Hx Cardiac Disorders: No Hx Psychiatric Problems: No Hx Miscellaneous Medical Probl: No Hx Alcohol Use: No Hx Substance Use: No Hx Tobacco Use: No FmHx Family History: No diabetes, No coronary disease, No other Physical Exam Vitals Vital Signs Date Temp Pulse Resp B/P (MAP) Pulse Ox O2 O2 Flow FiO2 Time Delivery Rate 12/19/18 97.8 89 18 134/83 99 06:35 (100) Physical Exam GENERAL: The patient is well-appearing, well-nourished, in no acute distress HEENT: Atraumatic. Conjunctivae are pink. Pupils equal, round, and reactive to light. There is no scleral icterus. Tympanic membranes clear bilaterally. Oropharynx clear. CHEST: Clear to auscultation bilaterally. There are no rales, wheezes or rhonchi. HEART: Regular rate and rhythm. No murmurs, clicks, rubs or gallops. ABDOMEN: Normal active bowel sounds. No distention. No organomegaly. Tender to the right upper quadrant. Result Diagram: 12/19/18 0612 12/19/18 0612 Results 24 hrs Laboratory Tests Test 12/19/18 06:12 12/19/18 06:51 12/19/18 06:52 White Blood Count 10.0 10^3/ul Red Blood Count 4.62 10^6/ul Hemoglobin 12.9 g/dl Hematocrit 40.8 % Mean Corpuscular Volume 88.3 fl Mean Corpuscular Hemoglobin 27.9 pg Mean Corpuscular 31.6 g/dl Hemoglobin Concent Red Cell Distribution Width 13.5 % Platelet Count 365 10^3/UL Mean Platelet Volume 9.7 fl Immature Granulocytes % 0.300 % Neutrophils % 65.8 % Lymphocytes % 24.1 % Monocytes % 7.2 % Eosinophils % 2.2 % Basophils % 0.4 % Nucleated Red Blood Cells % 0.0 /100WBC Immature Granulocytes # 0.030 10^3/ul Neutrophils # 6.6 10^3/ul Lymphocytes # 2.4 10^3/ul Monocytes # 0.7 10^3/ul Eosinophils # 0.2 10^3/ul Basophils # 0.0 10^3/ul Nucleated Red Blood Cells # 0.0 10^3/ul Sodium Level 141 mmol/L Potassium Level 4.0 mmol/L Chloride Level 105 mmol/L Carbon Dioxide Level 27 mmol/L Anion Gap 9 Blood Urea Nitrogen 10 mg/dl Creatinine 0.63 mg/dl Est Glomerular Filtrat Rate mL/min > 60 mL/min Glucose Level 100 mg/dl Calcium Level 9.0 mg/dl Total Bilirubin 0.4 mg/dl Direct Bilirubin 0.00 mg/dl Indirect Bilirubin 0.4 mg/dl Aspartate Amino Transf (AST/SGOT) 16 IU/L Alanine 11 IU/L Aminotransferase (ALT/SGPT) Alkaline Phosphatase 86 IU/L Total Protein 7.9 g/dl Albumin 4.3 g/dl Globulin 3.60 g/dl Albumin/Globulin Ratio 1.19 Lipase 78 U/L POC Beta HCG, Qualitative NEGATIVE Bedside Urine pH (LAB) 5.5 Bedside Urine Protein (LAB) Negative Bedside Urine Glucose (UA) Negative Bedside Urine Ketones (LAB) Negative Bedside Urine Blood 2+ Bedside Urine Nitrite (LAB) Negative Bedside Urine Leukocyte Esterase Negative (L Current Medications Medications Dose Sig/Jere Start Time Status Last (Trade) Ordered Route PRN Stop Time Admin Dose Reason Admin 40 ml ONCE STAT 12/19/18 DC 12/19/18 Miscellaneous PO 06:47 06:54 Medication 12/19/18 06:50 (Gi Cocktail (2)) Belladonna/ 2 tab ONCE STAT 12/19/18 DC 12/19/18 Phenobarbital PO 06:47 06:54 () 12/19/18 06:50 25 mg ONCE ONCE 12/19/18 DC 12/19/18 Diphenhydrami PO 07:00 06:54 ne HCl 12/19/18 07:01 (Benadryl) Procedures/MDM DIAGNOSTIC IMAGING REPORT Patient: NAJMA ANDERSON : 1995 Age: 23 Sex: F MR #: [id number] DOS: 12/19/18 0647 Ordering MD: SALOME JAMISON PA-C Location: [facility] Room/Bed: PROCEDURE: US Abdomen (right upper quadrant). CLINICAL INDICATION: Abdominal pain. TECHNIQUE: Multiple real-time longitudinal and transverse images of the right upper quadrant of the abdomen were acquired utilizing a curved array transducer. Images were reviewed on a high-resolution PACS workstation. COMPARISON: None FINDINGS: The liver is normal in size and demonstrates increased echogenicity. No focal intrahepatic mass is identified. The gallbladder contains stones. There is mild gallbladder wall thickening. No intra or extrahepatic biliary dilatation is seen. The common bile duct measures 2.5 mm in maximal dimension. The portal and hepatic veins are patent demonstrating normal directional flow. The visualized portions of the pancreas are unremarkable with obscuration of the tail of the pancreas. No free fluid is identified. The right kidney measures 10.2 cm in length. The renal parenchyma demonstrates normal echogenicity. There is no perinephric fluid collection. No hydronep hrosis, mass, or calculus is seen. IMPRESSION: 1. Cholelithiasis with gallbladder wall thickening. Clinical correlation for acute cholecystitis is required. 2. Hepatic steatosis. MDM: 23-year-old female presents with epigastric pain. Patient's findings consistent with cholelithiasis with concern for early cholecystitis. This case was discussed with Dr. Novoa who reviewed the ultrasound images. Gallbladder wall was not extensively thickened and it was felt that patient was stable for outpatient management with oral antibiotics and close follow-up. Patient will be discharged with pain medication and oral antibiotics. Patient is told symptoms change or worsen to return immediately to the ER. All questions answered at discharge Departure Diagnosis: Primary Impression: Gallstones Condition: Stable Patient Instructions: Gallstones Referrals: [facility] YOU HAVE RECEIVED A MEDICAL SCREENING EXAM AND THE RESULTS INDICATE THAT YOU DO NOT HAVE A CONDITION THAT REQUIRES URGENT TREATMENT IN THE EMERGENCY DEPARTMENT. FURTHER EVALUATION AND TREATMENT OF YOUR CONDITION CAN WAIT UNTIL YOU ARE SEEN IN YOUR DOCTORS OFFICE WITHIN THE NEXT 1-2 DAYS. IT IS YOUR RESPONSIBILITY TO MAKE AN APPOINTMENT FOR FOLOW-UP CARE. IF YOU HAVE A PRIMARY DOCTOR --you should call your primary doctor and schedule an appointment IF YOU DO NOT HAVE A PRIMARY DOCTOR YOU CAN CALL OUR PHYSICIAN REFERRAL HOTLINE AT IF YOU CAN NOT AFFORD TO SEE A PHYSICIAN YOU CAN CHOSE FROM THE FOLLOWING [facility] [address] [facility] [facility] [address] [facility] [facility] [address] [facility] [facility] [address] [facility]. [facility] [address] [facility]. [facility]. [address] Additional Instructions: FOLLOW UP WITH YOUR PRIMARY CARE PHYSICIAN TOMORROW.Return to this facility if you are not improving as expected. MELINDA JAMISON PA-C December 19, 2018 09:42
[2018-12-19] MEDS ORDERED: OXYC-279 PO (18:57)
[2018-12-19] MEDS ORDERED: ONDA4TAB8 PO (18:57)
[2018-12-19] MEDS ORDERED: NAPR-985 PO (18:57)
== END 2018-12-19 09:05 | disposition home or self-care (01) ==
LOC: FTE 06:26
DX: K80.20 Calculus of gallbladder without cholecystitis without obstruction (principal)
CPT/HCPCS: 36415; 76705; 80053; 81003; 81025; 83690; 85025; Z7502; Z7610

== ENCOUNTER 2018-12-19 16:33 | Emergency (ER) | payer OTHER ==
[~2018-12-19] VITALS: Ht 165.1 cm; Wt 73.5 kg
[~2018-12-19 16:33] MED LIST changes: +CIPR500T4 PO; +FAMO-96 PO; +HYDR-4011 PO
[2018-12-19 16:37] VITALS: BP 138/79; PULSE 84; RESP 18; Ht 165.1 cm; Wt 73.5 kg
[2018-12-19] MEDS ORDERED: KETOROLAC 30 MG INJ IM STA (18:46)
[2018-12-19] MEDS ORDERED: ONDANSETRON (ODT) 4 MG TAB ODT STA (18:46)
[2018-12-19] MEDS ORDERED: NAPR-985 PO (18:57)
[2018-12-19] MEDS ORDERED: ONDA4TAB8 PO (18:57)
[2018-12-19] MEDS ORDERED: OXYC-279 PO (18:57)
--- NOTE | 2018-12-19 19:45 | ERD ---
ER Documentation Chief Complaint Chief Complaint dx:gallstones @ 0500, no relief w/pain meds, gallstone surgery 2017 HPI This is a 23-year-old young woman complaining of continued right upper quadrant abdominal pain, nausea, and dizziness after using Majestic that she was prescribed early this morning after being diagnosed with cholelithiasis. When she went home she use Majestic as prescribed but states she felt dizzy afterwards and also recalled that she had cholecystectomy about a year ago at [facility] and then became confused as to why she was diagnosed with cholelithiasis. She came back for reevaluation. Patient denies fevers, no dysuria, no chest pain or shortness of breath, no vomiting or diarrhea. States the pain is mild, constant and located in the right upper quadrant without radiation. No obvious precipitating or alleviating factors. She states she has had this pain in the past and it is similar to prior cholelithiasis. ROS All systems reviewed and are negative except as per history of present illness. Medications Home Meds Active Scripts Naproxen* (Naprosyn*) 500 Mg Tablet, 500 MG PO BID PRN for PAIN AND/OR INFLA MMATION, #60 TAB Prov:RAYMOND CHILDERS MD 12/19/18 Oxycodone HCl/Acetaminophen (Percocet 5-325 mg Tablet) 1 Each Tablet, 1 EACH PO TID PRN for PAIN LEVEL 6-10, #12 TAB Prov:RAYMOND CHILDERS MD 12/19/18 Ondansetron Hcl* (Zofran*) 4 Mg Tablet, 4 MG PO Q8H PRN for NAUSEA AND/OR VOMITING, #30 TAB Prov:RAYMOND CHILDERS MD 12/19/18 Hydrocodone/Acetaminophen (Majestic 5-325 Tablet) 1 Each Tablet, 1 TAB PO Q6H PRN for PAIN, #7 TAB Prov:MELINDA JAMISON PA-C 12/19/18 Ciprofloxacin Hcl* (Ciprofloxacin Hcl*) 500 Mg Tablet, 500 MG PO BID for 7 Days, TAB Prov:MELINDA JAMISON PA-C 12/19/18 Famotidine* (Pepcid*) 20 Mg Tablet, 20 MG PO BID for 4 Days, #30 TAB Prov:MELINDA JAMISON PA-C 12/19/18 Reported Medications Omeprazole* (Omeprazole*) 20 Mg Capsule.dr, 20 MG PO DAILY, #30 CAP 09/22/18 Allergies Allergies: Coded Allergies: No Known Allergy (Unverified , 09/22/18) PMhx/Soc History of Surgery: Yes (lap kaylin, right hand tendon sx) Anesthesia Reaction: No Hx Neurological Disorder: No Hx Respiratory Disorders: No Hx Cardiac Disorders: No Hx Psychiatric Problems: No Hx Miscellaneous Medical Probl: No Hx Alcohol Use: No Hx Substance Use: No Hx Tobacco Use: No Smoking Status: Never smoker FmHx Family History: No diabetes Physical Exam Vitals Vital Signs Date Temp Pulse Resp B/P (MAP) Pulse Ox O2 O2 Flow FiO2 Time Delivery Rate 12/19/18 98.8 84 18 138/79 99 16:37 (98) Physical Exam GENERAL: Well-developed, well-nourished, well-hydrated, in no apparent distress, looks nontoxic in appearance HEENT: Moist mucous membranes, pink conjunctiva, no cervical spine tenderness or step-off deformities, no goiter, no jaundice or icterus, extraocular movements intact without pain. No submandibular induration, and no pharyngeal erythema NEURO: Alert and oriented 3, cranial nerves II through XII intact bilaterally, pupils equal round reactive to light, no focal deficits or facial asymmetry, sensation intact distally Strength 5/5 in upper and lower extremities bilaterally CARDIAC: Regular rate and rhythm, no murmurs rubs or gallops LUNGS: Clear bilaterally no wheezing crackles or stridor ABDOMEN: Soft nontender, no guarding, no rigidity, no rebound, no psoas sign no obturator sign. Normoactive bowel sounds SKIN: Warm and dry to touch, no abrasions, contusions, or hematomas, no lacerations, no ecchymosis, no target lesions, and without ulcers EXTREMITIES: No clubbing cyanosis or edema, calves are bilaterally symmetrical, no Homans sign, no popliteal cord sign. Distal pulses equal and bilateral PSYCH: Normal affect without agitation or irritability Results 24 hrs Current Medications Medications Dose Sig/Jere Start Time Status Last (Trade) Ordered Route PRN Stop Time Admin Dose Reason Admin Ketorolac 30 mg ONCE STAT 12/19/18 DC 12/19/18 Tromethamine IM 18:46 19:03 (Toradol) 12/19/18 18:47 Ondansetron 4 mg ONCE STAT 12/19/18 DC 12/19/18 HCl (Zofran ODT 18:46 19:02 Odt) 12/19/18 18:47 Procedures/MDM I administered Toradol 30 mg IM x1 and Zofran 4 mg p.o. I reviewed the records at [facility], specifically the operative record, and it seems that the gallbladder resection was performed at the gallbladder neck due to variant anatomy and there was small residual gallbladder left after most of the gallbladder was removed After medications administered here patient felt better and I agreed to provide her different analgesics to use at home and also added Zofran for nausea and dizziness should it recur. I also explained to the patient the specifics about her cholecystectomy last year so she is more clear on this. I reviewed this morning's ER management and work-up. Differential diagnoses considered, included but not limited to acute coronary syndrome, pulmonary embolism, aortic dissection, abdominal aortic aneurysm, sepsis, stroke, meningitis, encephalitis, pneumonia, appendicitis, cholecystitis, bowel obstruction, pyelonephritis, nephrolithiasis, cystitis, as well as metabolic, hematologic, and electrolyte abnormalities. As well as abscess, cellulitis, fractures, and dislocations. Patient feels much better at this time, and vital signs are normal, symptoms have improved. I did give strict instructions to return to the ED if symptoms continue or worsen, patient will otherwise follow-up with primary care physician. Patient understood instructions and agreed to plan. Disclaimer: Inadvertent spelling and grammatical errors are likely due to EHR/dictation software use and do not reflect on the overall quality of patient care. Also, please note that the electronic time recorded on this note does not necessarily reflect the actual time of the patient encounter. Departure Diagnosis: Primary Impression: Cholelithiasis Cholelithiasis location: gallbladder Cholecystitis presence: without cholecystitis Biliary obstruction: without biliary obstruction Qualified Codes: K80.20 - Calculus of gallbladder without cholecystitis without obstruction Additional Impression: Postoperative pain Ruled Out: Abdominal pain Condition: Good RAYMOND CHILDERS MD December 19, 2018 19:45
== END 2018-12-19 19:10 | disposition home or self-care (01) ==
LOC: FTE 16:33
DX: K80.20 Calculus of gallbladder without cholecystitis without obstruction (principal); G89.18 Other acute postprocedural pain
CPT/HCPCS: 96372; J1885; Z7502; Z7610

== ENCOUNTER 2019-01-12 06:15 | Day surgery (SDC) | payer OTHER ==
[~2019-01-12] VITALS: Ht 160 cm; Wt 72.7 kg
[~2019-01-12 06:15] MED LIST changes: +NAPR-985 PO; +ONDA4TAB8 PO; +OXYC-279 PO
[2019-01-12] MEDS ORDERED: NORCO (07:20)
[2019-01-12] MEDS ORDERED: OMEP40CA6 PO (07:20)
[2019-01-12 07:21] VITALS: Ht 160 cm; Wt 72.7 kg
[2019-01-12] MEDS ORDERED: MIDAZOLAM 1 MG/ML 2 ML INJ ONE ×3 (09:52)
[2019-01-12] MEDS ORDERED: FENTAnyl 50 MCG/ML VIAL ONE (09:52)
== END 2019-01-12 12:51 | disposition home or self-care (01) ==
LOC: GIL 06:15
PROVIDERS: ATTEND Internal Medicine Gastroenterology
DX: R19.7 Diarrhea, unspecified (principal); K64.8 Other hemorrhoids; K21.0 Gastro-esophageal reflux disease with esophagitis; K29.60 Other gastritis without bleeding
CPT/HCPCS: 43239; 45380; 84703; 88305; J2250; J3010; Z7610

== ENCOUNTER 2019-03-21 18:56 | Emergency (ER) | payer OTHER ==
[~2019-03-21] VITALS: Ht 162.6 cm; Wt 72.6 kg
[~2019-03-21 18:56] MED LIST changes: -CIPR500T4 PO; -HYDR-4011 PO; +MAG-19 PO; -NAPR-985 PO; +NORCO; -OMEP20CA16 PO; +OMEP40CA6 PO; +ONDA4TAB14 PO; -ONDA4TAB8 PO; -OXYC-279 PO
[2019-03-21 19:04] VITALS: BP 136/63; PULSE 85; RESP 18; Ht 162.6 cm; Wt 72.6 kg
[2019-03-21] MEDS ORDERED: LIDOCAINE/MYLANTA 40 ML BTL PO STA (20:05)
[2019-03-21] MEDS ORDERED: FAMOTIDINE 20 MG TAB PO STA (20:05)
== END 2019-03-21 22:12 | disposition home or self-care (01) ==
LOC: FTE 18:56
DX: R10.13 Epigastric pain (principal); R11.10 Vomiting, unspecified
CPT/HCPCS: 36415; 76705; 80053; 81001; 81025; 83690; 85025; Z7502; Z7610; 81003